=== PATIENT | female | born 1990 | race Two or more races ===

== ENCOUNTER 2020-03-29 14:46 | Emergency (ER) | payer OTHER ==
[~2020-03-29] VITALS: Ht 172.7 cm; Wt 68.0 kg
[2020-03-29] MEDS ORDERED: [UNRECOGNIZED DRUG - OTHER] (15:07)
== END 2020-03-29 19:10 | disposition home or self-care (01) ==
LOC: ER 14:46
DX: O03.4 Incomplete spontaneous abortion without complication (principal)

== ENCOUNTER 2020-11-04 16:45 | Emergency (ER) | payer OTHER ==
[~2020-11-04] VITALS: Ht 172.7 cm; Wt 73.0 kg
[~2020-11-04 16:45] MED LIST: [UNRECOGNIZED DRUG - OTHER]
== END 2020-11-04 21:54 ==
LOC: ER 16:45
DX: O26.891 Other specified pregnancy related conditions, first trimester (principal); R10.2 Pelvic and perineal pain; Z3A.01 Less than 8 weeks gestation of pregnancy

== ENCOUNTER 2020-11-27 22:18 | Emergency (ER) | payer OTHER ==
[~2020-11-27] VITALS: Ht 172.7 cm; Wt 72.1 kg
[2020-11-27] MEDS ORDERED: FOLIC ACID0.8 M1 (23:01)
== END 2020-11-28 06:04 | disposition home or self-care (01) ==
LOC: ER 22:18
DX: O21.8 Other vomiting complicating pregnancy (principal); Z03.818 Encounter for observation for suspected exposure to other biological agents ruled out; Z34.01 Encounter for supervision of normal first pregnancy, first trimester

== ENCOUNTER 2020-12-19 15:00 | Emergency (ER) | payer OTHER ==
[~2020-12-19] VITALS: Ht 172.7 cm; Wt 69.4 kg
[~2020-12-19 15:00] MED LIST changes: +FOLIC ACID0.8 M1
== END 2020-12-19 21:41 | disposition home or self-care (01) ==
LOC: ER 15:00
DX: O21.0 Mild hyperemesis gravidarum (principal); Z34.02 Encounter for supervision of normal first pregnancy, second trimester

== ENCOUNTER 2021-02-06 14:43 | Emergency (ER) | payer OTHER ==
[~2021-02-06] VITALS: Ht 172.7 cm; Wt 75.3 kg
== END 2021-02-06 20:59 | disposition home or self-care (01) ==
LOC: ER 14:43
DX: O26.892 Other specified pregnancy related conditions, second trimester (principal); R10.2 Pelvic and perineal pain; Z34.82 Encounter for supervision of other normal pregnancy, second trimester; Z11.52 Encounter for screening for COVID-19

== ENCOUNTER 2021-06-22 08:43 | Emergency (ER) | payer OTHER ==
[~2021-06-22] VITALS: Ht 172.7 cm; Wt 85.3 kg
== END 2021-06-22 14:25 | disposition home or self-care (01) ==
LOC: ER 08:43
DX: R60.0 Localized edema (principal)